=== PATIENT | male | born 2000 | race Caucasian/White ===

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

== ENCOUNTER 2022-01-12 06:03 | Emergency (ER) | payer MEDICAID ==
[~2022-01-12] VITALS: Ht 167.6 cm; Wt 91.0 kg
[2022-01-12 06:19] VITALS: BP 135/84
[2022-01-12] MEDS ORDERED: MAGNESIUM/ALUMINUM HYDROXIDE/SIMETHICONE 30ML UDC PO STA (08:50)
[2022-01-12 09:38] LABS: CHLORIDE 106 mEq/L (98-107)
[2022-01-12 09:43] LABS: CLARITY URINE TURBID (CLEAR); COLOR URINE YELLOW (YELLOW); KETONES URINE NEGATIVE (NEGATIVE); LEUKOCYTE ESTERASE URINE NEGATIVE (NEGATIVE); NITRITE URINE NEGATIVE (NEGATIVE); OCCULT BLOOD URINE NEGATIVE (NEGATIVE); PH URINE 5.5 (4.5-8.0); PROTEIN URINE TRACE (NEGATIVE); SPECIFIC GRAVITY URINE 1.037 (1.005-1.030)
[2022-01-12 09:46] LABS: BASOPHILS % 0.3 % (0.0-2.0); EOSINOPHILS % 0.7 % (0.0-5.0); HEMATOCRIT. 44.2 % (42.0-52.0); HEMOGLOBIN. 14.9 g/dL (14.0-18.0); MEAN CORPUSCULAR HEMOGLOBIN 28.9 pg (28.0-32.0); MEAN CORPUSCULAR VOLUME 85.5 fL (80.0-94.0); MEAN PLATELET VOLUME 9.6 fl (7.4-10.4); MONOCYTES % 4.2 % (2.0-8.0); NEUTROPHILS % 84.8 % (40.0-76.0); PLATELET 204 x1000/uL (130-400); RED BLOOD CELL COUNT 5.18 mill/uL (4.7-6.1); RED CELL DISTRIBUTION WIDTH 13.1 % (11.6-14.6)
[2022-01-12] MEDS ORDERED: IBUP-2029 MT (10:26)
== END 2022-01-12 10:34 | disposition home or self-care (01) ==
LOC: ER 06:03
DX: R10.11 Right upper quadrant pain (principal); R03.0 Elevated blood-pressure reading, without diagnosis of hypertension
CPT/HCPCS: 36415; 74176; 80053; 81003; 85025; 99284

== ENCOUNTER 2022-02-28 06:39 | Inpatient (IN) | payer MEDICAID ==
[~2022-02-28] VITALS: Ht 165.1 cm; Wt 69.9 kg
[2022-02-28] MEDS ORDERED: ONDANSETRON HCL 4MG/2ML INJ IM STA (10:56)
[2022-02-28] MEDS ORDERED: HYDROCODONE/ACETAMINOPHEN 5/325MG TABLET PO STA (10:56)
[2022-02-28] MEDS ORDERED: MAGNESIUM/ALUMINUM HYDROXIDE/SIMETHICONE 30ML UDC PO ONE (11:00)
[2022-02-28 12:11] LABS: HEMATOCRIT. 46.5 % (42.0-52.0); HEMOGLOBIN. 15.3 g/dL (14.0-18.0); MEAN CORPUSCULAR HEMOGLOBIN 28.4 pg (28.0-32.0); MEAN PLATELET VOLUME 9.3 fl (7.4-10.4); PLATELET 207 x1000/uL (130-400); RED CELL DISTRIBUTION WIDTH 13.6 % (11.6-14.6)
[2022-02-28 12:19] LABS: CHLORIDE 107 mEq/L (98-107)
[2022-02-28 12:42] LABS: CLARITY URINE TURBID (CLEAR); COLOR URINE YELLOW (YELLOW); KETONES URINE TRACE (NEGATIVE); LEUKOCYTE ESTERASE URINE NEGATIVE (NEGATIVE); NITRITE URINE NEGATIVE (NEGATIVE); OCCULT BLOOD URINE NEGATIVE (NEGATIVE); PH URINE 5.5 (4.5-8.0); PROTEIN URINE TRACE (NEGATIVE); SPECIFIC GRAVITY URINE 1.031 (1.005-1.030); UROBILINOGEN URINE 0.2 E.U./dL (0.2-1.0)
[2022-02-28 12:57] LABS: PLATELET ESTIMATE NORMAL
[2022-02-28] MEDS ORDERED: SODIUM CHLORIDE 0.9% 1,000 ML IV ONE ×2 (14:00→16:00)
[2022-02-28] MEDS ORDERED: KETOROLAC 30MG/ML VIAL IV STA (15:46)
[2022-02-28] MEDS ORDERED: LEVOFLOXACIN 750MG PREMIX 150 ML IV ONE (16:00)
[2022-02-28] MEDS ORDERED: PIPERACILLIN/TAZ 3.375G PREMIX 50 ML IV ONE (16:00)
[2022-02-28] MEDS ORDERED: KETOROLAC 30MG/ML VIAL IV NR (17:30)
[2022-02-28] MEDS ORDERED: DEXT 5%/0.9% NACL 1,000 ML IV ONE (17:45)
[2022-02-28] MEDS ORDERED: PIPERACILLIN/TAZ 3.375G PREMIX 50 ML IV SCH (22:45)
[2022-03-01] MEDS ORDERED: PIPERACILLIN/TAZOBACTAM 3.375G in DEXT 5% WATER 50ML IV SCH (02:00)
[2022-03-01 09:05] LABS: BASOPHILS % 0.5 % (0.0-2.0); CHLORIDE 107 mEq/L (98-107); EOSINOPHILS % 4.4 % (0.0-5.0); HEMATOCRIT. 41.5 % (42.0-52.0); HEMOGLOBIN. 14.1 g/dL (14.0-18.0); LYMPHOCYTES % 29.5 % (20.0-50.0); MEAN CORPUSCULAR HEMOGLOBIN 29.2 pg (28.0-32.0); MEAN CORPUSCULAR VOLUME 85.9 fL (80.0-94.0); MEAN PLATELET VOLUME 9.5 fl (7.4-10.4); MONOCYTES % 9.7 % (2.0-8.0); NEUTROPHILS % 55.9 % (40.0-76.0); PLATELET 174 x1000/uL (130-400); RED BLOOD CELL COUNT 4.84 mill/uL (4.7-6.1)
[2022-03-01] MEDS ORDERED: LEVO-65 MT (11:29)
[2022-03-01] MEDS ORDERED: METR-167 MT (11:29)
[2022-03-01] MEDS: PIPERACILLIN/TAZOBACTAM 3.375G in DEXT 5% WATER 50ML IV SCH ×2 (14:00→21:25)
[2022-03-01] MEDS ORDERED: NALOXONE HCL 0.4MG/ML VIAL IV PRN (15:30)
[2022-03-01 20:00] VITALS: BP 126/73
[2022-03-01 21:38] VITALS: BP 131/87
[2022-03-01] MEDS: HYDROCODONE/ACETAMINOPHEN 5/325MG TABLET PO PRN (21:40)
[2022-03-02] VITALS: BP 122/71
[2022-03-02 04:00] VITALS: BP 127/79
[2022-03-02] MEDS: PIPERACILLIN/TAZOBACTAM 3.375G in DEXT 5% WATER 50ML IV SCH ×3 (05:26→22:19)
[2022-03-02] MEDS: HYDROCODONE/ACETAMINOPHEN 5/325MG TABLET PO PRN ×3 (05:32→22:45)
[2022-03-02 06:47] LABS: BASOPHILS % 0.3 % (0.0-2.0); EOSINOPHILS % 2.3 % (0.0-5.0); HEMATOCRIT. 45.1 % (42.0-52.0); LYMPHOCYTES % 15.2 % (20.0-50.0); MEAN CORPUSCULAR HEMOGLOBIN 28.5 pg (28.0-32.0); MEAN CORPUSCULAR VOLUME 85.8 fL (80.0-94.0); MEAN PLATELET VOLUME 9.6 fl (7.4-10.4); MONOCYTES % 8.9 % (2.0-8.0); NEUTROPHILS % 73.3 % (40.0-76.0); PLATELET 191 x1000/uL (130-400); RED BLOOD CELL COUNT 5.25 mill/uL (4.7-6.1); RED CELL DISTRIBUTION WIDTH 13.6 % (11.6-14.6)
[2022-03-02 07:15] LABS: CHLORIDE 102 mEq/L (98-107)
[2022-03-02] MEDS ORDERED: POTASSIUM CHLORIDE 20MEQ TABLET SR PO NR (07:45)
[2022-03-02 08:00] VITALS: BP 117/65
[2022-03-02 12:00] VITALS: BP 114/66
[2022-03-02 23:53] VITALS: BP 118/72
[2022-03-03] MEDS: PIPERACILLIN/TAZOBACTAM 3.375G in DEXT 5% WATER 50ML IV SCH ×2 (05:34→14:41)
[2022-03-03 07:19] LABS: BASOPHILS % 0.5 % (0.0-2.0); CHLORIDE 101 mEq/L (98-107); EOSINOPHILS % 0.9 % (0.0-5.0); HEMATOCRIT. 44.2 % (42.0-52.0); HEMOGLOBIN. 14.9 g/dL (14.0-18.0); LYMPHOCYTES % 15.8 % (20.0-50.0); MEAN CORPUSCULAR HEMOGLOBIN 28.8 pg (28.0-32.0); MEAN CORPUSCULAR VOLUME 85.2 fL (80.0-94.0); MEAN PLATELET VOLUME 9.6 fl (7.4-10.4); MONOCYTES % 13.9 % (2.0-8.0); NEUTROPHILS % 68.9 % (40.0-76.0); PLATELET 203 x1000/uL (130-400); RED BLOOD CELL COUNT 5.19 mill/uL (4.7-6.1); RED CELL DISTRIBUTION WIDTH 13.4 % (11.6-14.6)
[2022-03-03] MEDS ORDERED: POTASSIUM CHLORIDE 20MEQ TABLET SR PO NR (11:45)
[2022-03-03 12:00] VITALS: BP 128/79
[2022-03-03 19:30] VITALS: BP 110/73
== END 2022-03-03 21:10 | disposition home or self-care (01) ==
LOC: ER 06:39 → MICUSO 17:52 → 6EST 03-01 13:14
PROVIDERS: ADMIT Internal Medicine; ATTEND Internal Medicine
DX: K80.42 Calculus of bile duct with acute cholecystitis without obstruction (principal); D72.825 Bandemia; E87.6 Hypokalemia; F12.90 Cannabis use, unspecified, uncomplicated; E80.6 Other disorders of bilirubin metabolism
CPT/HCPCS: 36415; 74181; 76705; 80048; 80053; 80076; 81003; 85025; 99285; J1885; J1956; J2405; J2543; J7030; J7060